=== PATIENT | female | born 1945 | race Caucasian/White ===

== ENCOUNTER 2018-01-05 15:08 | Inpatient (IN) | payer MEDICARE ==
[~2018-01-05 15:08] MED LIST: ISOVUE-370 76%-LOCM 1 ML ONE
[2018-01-05 15:31] LABS: #Basophils 0.1 thou/uL (0.0-0.2); #Eosinphils 0.1 thou/uL (0.0-0.7); #Lymphocytes 1.2 thou/uL (1.20-3.40); #Monocytes 0.5 thou/uL (0.11-0.59); #Neutrophils 8.2 thou/uL (1.40-6.50); %Basophils 1.2 % (0.0-1.0); %Eosinophils 0.7 % (0.0-10.0); %Lymphocytes 12.1 % (21.0-51.0); %Monocytes 4.6 % (0.0-10.0); %Neutrophils 81.3 % (42.0-75.0); Hemoglobin 13.8 g/dL (12.0-16.0); Mean Corpuscular HGB CONC 34.9 g/dL (32.0-36.0); Mean Corpuscular Hemoglobin 32.3 pg (27.0-31.0); Mean Corpuscular Volume 92.7 fL (78.0-98.0); Mean Platelet Volume 8.4 fL (7.4-10.4); Platelet Count 247 thou/uL (130-400); RBC Distribution Width 12.7 % (11.5-14.5); Red Blood Cell (RBC) Count 4.28 mill/uL (4.20-5.40)
--- NOTE | 2018-01-05 15:34 | CT ---
CT BRAIN WITHOUT CONTRAST 01/05/18 HISTORY: Altered mental status and right sided weakness. FINDINGS: No evidence of acute infarct, hemorrhage, midline shift, or abnormal extra-axial fluid collections se en. there are changes of chronic small vessel ischemic disease in the periventricular white matter. The ventricular size is appropriate and the basilar cisterns patent. The bony calvarium is intact. Th e visualized paranasal sinuses and mastoid air cells are well aerated. IMPRESSION: No CT evidence of acute intracranial process. Discussed over the telephone with ER physician, Dr. Mendosa at 3:30 p.m. POS: [facility]
[2018-01-05 15:44] LABS: ALT (SGPT) 18 U/L (8-55); AST (SGOT) 19 U/L (5-34); Albumin 4.3 g/dL (3.4-4.8); Alkaline Phosphatase 75 U/L (40-150); Anion Gap 18 mmol/L (10-20); BUN (Urea Nitrogen) 20 mg/dL (9.8-20.1); Bilirubin, Total 0.7 mg/dL (0.2-1.2); Calc. Creatinine Clearance 0 mL/min (70-130); Calcium 9.3 mg/dL (7.8-10.44); Carbon Dioxide 18 mmol/L (23-31); Chloride 101 mmol/L (98-107); Estimated GFR-MDRD 72; Globulin 2.4 g/dL (2.4-3.5); Glucose 178 mg/dL (83-110); PTT 23.4 SEC (22.9-36.1); Potassium 3.4 mmol/L (3.5-5.1); Protein, Total 6.7 g/dL (6.0-8.3); Sodium 134 mmol/L (136-145)
[2018-01-05 15:48] LABS: CKMB 6.4 ng/mL (0-6.6); Troponin I 0.016 ng/mL (< 0.028)
[2018-01-05 16:00] LABS: Bilirubin Negative (Negative); Blood, Urine Negative (Negative); Clarity CLEAR (Clear); Glucose, Urine (Dipstick) Negative (Negative); Leukocyte Negative (Negative); Nitrite Negative (Negative); Protein, Urine (Dipstick) Negative (Neg-Trace); Specific Gravity, Urine 1.018 (1.002-1.036); Urobilinogen 0.2 mg/dL (0.2-1.0); pH, Urine 5.5 (5.0-9.0)
--- NOTE | 2018-01-05 16:05 | CT ---
CTA BRAIN WITH IV CONTRAST AND 3D POSTPROCESSING CTA NECK WITH IV CONTRAST AND 3D POSTPROCESSING 01/05/18 HISTORY: Altered mental status and right sided weakness. FINDINGS: There is good flow in the extra and intracranial carotid and vertebrobasilar systems without major br anch occlusion, significant stenosis or aneurysm formation. Atherosclerotic calcifications are presen t. Upper chest tomograms demonstrate changes of old granulomatous disease. There are degenerative venus nges in the cervical spine. IMPRESSION: No significant vascular abnormality seen. Discussed over the telephone with Dr. Mendosa at 3:46 p.m. POS: [facility]
[2018-01-05] MEDS ORDERED: Ondansetron ODT 4 MG TAB SL PRN (18:24)
[2018-01-05] MEDS ORDERED: Ondansetron HCl/PF 4 MG/2 ML Vial IVP PRN (18:24)
[2018-01-05] MEDS ORDERED: Acetaminophen 325 MG TAB PO PRN (18:24)
[2018-01-05 19:50] VITALS: BMI 22.2
[2018-01-05] MEDS ORDERED: Bisacodyl 5 MG TAB PO PRN (20:05)
[2018-01-05] MEDS ORDERED: Bisacodyl 10 MG SUPP PR PRN (20:05)
[2018-01-05] MEDS ORDERED: Senokot 8.6 MG TAB PO PRN (20:05)
[2018-01-05] MEDS ORDERED: Atorvastatin Calcium 20 MG TAB PO SCH (21:00)
[2018-01-06 05:18] LABS: #Eosinphils 0.1 thou/uL (0.0-0.7); #Lymphocytes 1.6 thou/uL (1.20-3.40); #Monocytes 0.6 thou/uL (0.11-0.59); #Neutrophils 6.2 thou/uL (1.40-6.50); %Basophils 0.3 % (0.0-1.0); %Lymphocytes 18.7 % (21.0-51.0); %Monocytes 7.4 % (0.0-10.0); %Neutrophils 72.6 % (42.0-75.0); Hemoglobin 13.4 g/dL (12.0-16.0); Mean Corpuscular HGB CONC 33.2 g/dL (32.0-36.0); Mean Corpuscular Hemoglobin 30.6 pg (27.0-31.0); Mean Corpuscular Volume 91.9 fL (78.0-98.0); Mean Platelet Volume 8.8 fL (7.4-10.4); Platelet Count 249 thou/uL (130-400); RBC Distribution Width 12.8 % (11.5-14.5); Red Blood Cell (RBC) Count 4.38 mill/uL (4.20-5.40); White Blood Cell (WBC) Count 8.6 thou/uL (4.8-10.8)
[2018-01-06 05:39] LABS: Anion Gap 11 mmol/L (10-20); BUN (Urea Nitrogen) 13 mg/dL (9.8-20.1); Calc. Creatinine Clearance 54 mL/min (70-130); Calcium 9.3 mg/dL (7.8-10.44); Carbon Dioxide 25 mmol/L (23-31); Cardiac Risk 3.8 (Less than 4.5); Chloride 103 mmol/L (98-107); Cholesterol 162 mg/dl (< 200 Desired); Estimated GFR-MDRD 79; Glucose 96 mg/dL (83-110); HDL Cholesterol 43 mg/dL (>60 Neg Risk); LDL Cholesterol, Calculated 101 mg/dL; Potassium 3.4 mmol/L (3.5-5.1); Sodium 136 mmol/L (136-145); Triglycerides 89 mg/dL (Less than 150)
[2018-01-06] MEDS ORDERED: Levothyroxine Sodium 100 MCG TAB PO SCH (06:00)
[2018-01-06 07:35] VITALS: TEMP 98.2
[2018-01-06] MEDS ORDERED: Aspirin 325 mg Enteric Coated Tablet PO SCH (09:00)
[2018-01-06] MEDS ORDERED: Ezetimibe 10 MG TAB PO SCH (09:00)
[2018-01-06] MEDS ORDERED: Enoxaparin Sodium 30 MG/0.3 ML SYRINGE SC SCH (09:00)
--- NOTE | 2018-01-06 11:46 | MRI ---
MRI BRAIN WITHOUT CONTRAST: HISTORY: Stroke. The patient has been under a lot of stress recently and lost her mind for a while. Guerra dden onset of forgetfulness. COMPARISON: None. TECHNIQUE: Multiplanar, multisequence MR images were obtained of the brain without contrast. FINDINGS: There are scattered foci of high FLAIR signal in the subcortical and periventricular white matter, li elsa secondary to small vessel ischemic disease. No restricted diffusion is seen to suggest an acute infarction. There is no evidence of hydrocephalus, intracranial hemorrhage, or extraaxial fluid collection. The expected flow voids are seen. The corpus callosum, pituitary, and craniocervical junction are unrema rkable. The calvarium and overlying soft tissues are unremarkable. The visualized paranasal sinuses and mast oid air cells are well aerated. IMPRESSION: 1. No evidence of acute intracranial abnormality. 2. Small vessel ischemic disease. POS: [facility]
[2018-01-06 14:25] VITALS: BP 150/94
--- NOTE | 2018-01-07 00:17 | CON ---
DATE OF CONSULTATION: 01/06/2018 REFERRING PHYSICIAN: Josie Jeffrey MD REASON FOR CONSULTATION: Altered mental status. HISTORY OF PRESENT ILLNESS: Ms. Jackson is a pleasant 72-year-old female who has been cons ulted for evaluation of altered mental status. The patient reports that yesterday morning she had a sudden onset of confusion. She also had right-sided weakness. Her family called EMS. On EMS arriva l, her blood pressure was noted to be 182/119, tachycardic and blood sugar of 119. She was brought t o the [facility] and after arrival here, her symptoms started improving. She reports that s he is back to her baseline. She states that she has been under a lot of stress as her sister and bro ther-in-law in less than 1 month, which had concerned her and make her more stressed out. She c urrently denies any headache, vision changes, chest pain, palpitation, numbness, tingling, weakness, changes in speech, change in swallowing or difficulty with balance. PAST MEDICAL HISTORY: Significant for hypertension, hyperlipidemia, and hypothyroidism. PAST SURGICAL HISTORY: Significant for thyroidectomy, hysterectomy. SOCIAL HISTORY: She denies smoking, alcohol use, or illicit drug use. CURRENT MEDICATIONS: Please review MAR. ALLERGIES: No known drug allergies. FAMILY HISTORY: Noncontributory. REVIEW OF SYSTEMS: As mentioned, which was negative. PHYSICAL EXAMINATION: VITAL SIGNS: Blood pressure of 150/94, pulse of 83, temperature 98.2, respirations of 16, O2 sats of 94% on room air. GENERAL: Well-developed, well-nourished female in no apparent distress. RESPIRATORY: Clear to auscultation bilaterally. CARDIOVASCULAR: Regular rate and rhythm. NEUROLOGIC: Mental status: The patient is awake, alert, oriented x3. Speech and language: Fluent speech. Cranial nerves: Pupils are 3 mm and reactive. Visual crockett are intact. Extraocular muscl es are intact. No nystagmus. Face symmetric. Tongue and uvula midline. Motor exam showed normal t one and bulk with 5/5 strength in both upper and lower extremities. Babinski: Plantar responses fle xion bilaterally. Coordination intact to [id number] and finger tapping bilaterally. Gait an d Romberg are normal. LABORATORY DATA: Reviewed, which included CBC, coag panel, CMP, lipid profile, TSH, urinalysis which is significant for potassium of 3.4, otherwise unremarkable. IMAGING STUDIES: MRI brain without contrast was reviewed, which showed no acute intracranial abnorma lity. IMPRESSION: 1. Hypertensive urgency. 2. Altered mental status, likely due to hypertensive urgency. 3. Malignant hypertension. Ms. Jackson is a pleasant 72-year-old female who presented with an acute onset of confusion and right-sided weakness. Her blood pressure was noted to be significantly elevated, which may have been the culprit for her symptoms. I have advised her to control her blood pressure, cholesterol, d iet and exercise. I have advised her to continue taking aspirin 81 mg daily for secondary stroke pre vention. She is okay to be discharged to home with outpatient appointment to her primary care physic michael in less than 1 week. There is no further neurological workup needed from my standpoint.
== END 2018-01-06 14:56 | disposition home or self-care (01) | DRG 305 ==
LOC: ERS 15:08 → 2SE 17:45
PROVIDERS: ADMIT Internal Medicine; ATTEND Internal Medicine
DX: I16.0 Hypertensive urgency (principal); I10 Essential (primary) hypertension
CPT/HCPCS: 36415; 36416; 51701; 70450; 70496; 70498; 70551; 80048; 80053; 80061; 81003; 82553; 84443; 84484; 85025; 85610; 85730; 93005; A4353; G8978-GP-CJ; G8979-GP-CJ; G8980-GP-CJ; G8987-GO-CI; G8988-GO-CI; G8989-GO-CI; G8996-GN-CH; G8997-GN-CH; J1650

== ENCOUNTER 2018-01-17 12:20 | Outpatient (CLI) | payer MEDICARE | END 2018-01-17 12:21 | disposition home or self-care (01) | LOC: EEG 12:20 | PROVIDERS: ATTEND Internal Medicine | DX: R56.9 Unspecified convulsions (principal) | CPT/HCPCS: 95816 ==

== ENCOUNTER 2018-05-04 17:23 | Emergency (ER) | payer MEDICARE ==
[2018-05-04] MEDS ORDERED: levETIRAcetam In NaCl (Iso-Os) 1,000 MG in Premix Bag 1 BAG IVPB SCH (18:00)
[2018-05-04 18:12] LABS: #Lymphocytes 0.6 thou/uL (1.20-3.40); #Monocytes 0.4 thou/uL (0.11-0.59); #Neutrophils 9.4 thou/uL (1.40-6.50); %Eosinophils 0.4 % (0.0-10.0); %Lymphocytes 5.7 % (21.0-51.0); %Monocytes 3.8 % (0.0-10.0); %Neutrophils 90.1 % (42.0-75.0); Hemoglobin 14.5 g/dL (12.0-16.0); Mean Corpuscular HGB CONC 32.8 g/dL (32.0-36.0); Mean Corpuscular Hemoglobin 30.8 pg (27.0-31.0); Mean Corpuscular Volume 94.1 fL (78.0-98.0); Mean Platelet Volume 8.7 fL (7.4-10.4); Platelet Count 273 thou/uL (130-400); RBC Distribution Width 12.5 % (11.5-14.5); Red Blood Cell (RBC) Count 4.69 mill/uL (4.20-5.40); White Blood Cell (WBC) Count 10.4 thou/uL (4.8-10.8)
[2018-05-04 18:37] LABS: ALT (SGPT) 18 U/L (8-55); AST (SGOT) 25 U/L (5-34); Albumin 4.4 g/dL (3.4-4.8); Alkaline Phosphatase 97 U/L (40-150); Anion Gap 12 mmol/L (10-20); BUN (Urea Nitrogen) 23 mg/dL (9.8-20.1); Bilirubin, Total 0.4 mg/dL (0.2-1.2); Calc. Creatinine Clearance 0 mL/min (70-130); Calcium 9.5 mg/dL (7.8-10.44); Carbon Dioxide 27 mmol/L (23-31); Chloride 99 mmol/L (98-107); Estimated GFR-MDRD 56; Globulin 2.9 g/dL (2.4-3.5); Glucose 135 mg/dL (83-110); Protein, Total 7.3 g/dL (6.0-8.3); Sodium 134 mmol/L (136-145)
--- NOTE | 2018-05-04 20:05 | CT ---
NONCONTRAST HEAD CT: 05/04/18 HISTORY: Altered mental status. COMPARISON: 01/05/18. FINDINGS: No parenchymal hemorrhage. No extra-axial hematoma. No midline shift. Basilar cisterns are patent. St able atrophy. Stable hypo densities due to chronic small vessel ischemic changes of the white matter. Stable hypodensities in the mid brain and lucy. Stable calcifications involving the left cerebrum. No evidence of hydrocephalus. Cortical fernando-white matter differentiation is preserved. Adequate aeration of the sinuses and mastoid air cells. There is cavernous carotid atherosclerosis. C alvarium is intact. IMPRESSION: No acute intracranial process. POS: [facility]
== END 2018-05-04 20:11 | disposition home or self-care (01) ==
LOC: ERS 17:23
DX: G40.909 Epilepsy, unspecified, not intractable, without status epilepticus (principal); E03.9 Hypothyroidism, unspecified; E78.00 Pure hypercholesterolemia, unspecified; Z79.899 Other long term (current) drug therapy
CPT/HCPCS: 36415; 70450; 80053; 83605; 84146; 85025; 93005; 96361; 96365; J1953

== ENCOUNTER 2020-05-31 13:31 | Outpatient (CLI) | payer MEDICARE ==
[2020-05-31 14:19] LABS: #Monocytes 0.7 10x3/uL (0.0-1.1); #Neutrophils 10.8 10x3/uL (1.5-8.4); %Basophils 0.2 % (0.0-2.0); %Eosinophils 0.3 % (0.0-6.0); %Lymphocytes 8.8 % (18.0-47.0); %Monocytes 5.1 % (0.0-10.0); %Neutrophils 85.3 % (40.0-75.0); Hemoglobin 15.8 g/dL (12.0-16.0); Mean Corpuscular HGB CONC 33.6 G/DL (32.0-36.0); Mean Corpuscular Hemoglobin 31.4 PG (27.0-33.0); Mean Corpuscular Volume 93.4 fl (80.0-100.0); Platelet Count 355 10x3/uL (130-400); RBC Distribution Width 13.6 % (11.5-14.5); Red Blood Cell (RBC) Count 5.03 10x6/uL (3.90-5.20); White Blood Cell (WBC) Count 12.7 10x3/uL (4.5-11.0)
[2020-05-31 14:20] LABS: Bilirubin Neg (Negative); Blood, Urine Negative (Negative); Clarity Clear (Clear); Glucose, Urine (Dipstick) Normal (Negative); Ketone, Urine Negative (Negative); Leukocyte 100 (Negative); Nitrite Negative (Negative); Protein, Urine (Dipstick) Negative (Neg-Trace); Specific Gravity, Urine 1.015 (1.002-1.036); Urobilinogen Normal mg/dL (Less than 2)
[2020-05-31 14:40] LABS: INR-International Normal Ratio 0.9
[2020-05-31 15:13] LABS: Anion Gap 18 mmol/L (10-20); BUN (Urea Nitrogen) 20 mg/dL (9.8-20.1); Calc. Creatinine Clearance 0 mL/min (70-130); Calcium 9.9 mg/dL (7.8-10.44); Carbon Dioxide 23 mmol/L (23-31); Chloride 103 mmol/L (98-107); Estimated GFR-MDRD 65; Glucose 132 mg/dL (83-110); Potassium 4.4 mmol/L (3.5-5.1); Sodium 140 mmol/L (136-145)
[2020-05-31 15:41] LABS: RBC/HPF 0-3 HPF (0-3)
[2020-05-31 15:45] LABS: Bacteria/HPF 3+ HPF (None Seen)
[2020-05-31 15:47] LABS: Mucous/LPF Rare LPF (<2+)
[2020-06-01 03:08] LABS: SARS-CoV-2 MS2 Positive; SARS-CoV-2 N Gene Negative; SARS-CoV-2 S Gene Negative; SARS-CoV-2 by NAA Not Detected (NotDetected); SARS-CoV-2 orf1ab Negative
== END 2020-05-31 13:32 | disposition home or self-care (01) ==
LOC: LABBT 13:31
PROVIDERS: ATTEND Orthopaedic Surgery
DX: Z01.812 Encounter for preprocedural laboratory examination (principal); M16.11 Unilateral primary osteoarthritis, right hip; Z20.828 Contact with and (suspected) exposure to other viral communicable diseases
CPT/HCPCS: 80048; 81001; 85025; 85610; 87081; U0003; 87635

== ENCOUNTER 2020-06-04 06:15 | Inpatient (IN) | payer MEDICARE ==
[2020-06-03 10:32] VITALS: BMI 24.2
[2020-06-04] MEDS ORDERED: Midazolam HCl 2 mg/2 ml Vial ONE (07:55)
[2020-06-04] MEDS ORDERED: Fentanyl 100 MCG/2 ML VIAL ONE ×3 (07:56→13:36)
[2020-06-04] MEDS ORDERED: Vancomycin 1 GM/200 ML BAG ONE (08:00)
[2020-06-04] MEDS ORDERED: Sodium Chloride 0.9% 100 ML ONE (08:00)
[2020-06-04] MEDS ORDERED: Tranexamic Acid 1,000 MG/10 ML VIAL ONE (08:00)
[2020-06-04] MEDS ORDERED: traMADol HCl 50 MG TAB PO PRN ×3 (08:39→09:00)
[2020-06-04] MEDS ORDERED: Acetaminophen 325 MG TAB PO PRN (08:39)
[2020-06-04] MEDS ORDERED: HYDROcodone/Acetaminophen 10/325 mg Tablet PO PRN (08:39)
[2020-06-04] MEDS ORDERED: Zolpidem Tartrate 5 MG TAB PO PRN ×2 (08:39→09:00)
[2020-06-04] MEDS ORDERED: Fentanyl 100 MCG/2 ML VIAL SLOW IVP PRN (08:39)
[2020-06-04] MEDS ORDERED: Promethazine HCl 25 MG/ML VIAL IM PRN ×3 (08:39→11:08)
[2020-06-04] MEDS ORDERED: Ondansetron PF 4 MG/2 ML Vial IVP PRN (08:39)
[2020-06-04] MEDS ORDERED: diphenhydrAMINE 25 MG CAP PO PRN ×2 (08:39→09:00)
[2020-06-04] MEDS ORDERED: Acetaminophen 500 MG TAB PO PRN (08:55)
[2020-06-04] MEDS ORDERED: Naloxone HCl 0.4 mg/ml Vial IV PRN (09:00)
[2020-06-04] MEDS ORDERED: diphenhydrAMINE 50 MG/ML VIAL IVP PRN (09:00)
[2020-06-04] MEDS ORDERED: diphenhydrAMINE 50 MG/ML VIAL IM PRN (09:00)
[2020-06-04] MEDS ORDERED: Hydrocerin (Eucerin) Cream 120 gm Jar TOP PRN (09:00)
[2020-06-04] MEDS ORDERED: Naloxone HCl 0.4 mg/ml Vial IVP PRN (09:00)
[2020-06-04] MEDS ORDERED: Promethazine HCl 25 MG SUPP PR PRN (09:00)
[2020-06-04] MEDS ORDERED: Non-Formulary Item 1 EACH (Multivitamin [Multi-Vitamin Daily] 1 TABLET Tablet) PO SCH (09:00)
[2020-06-04] MEDS ORDERED: HYDROcodone/Acetaminophen 5/325 mg Tablet PO PRN ×2 (09:00)
[2020-06-04] MEDS ORDERED: Bupivacaine 0.25% 10 ML VIAL EPIDURAL PRN (09:00)
[2020-06-04] MEDS ORDERED: Bupivacaine 0.25% HCL 30 ML VIAL ONE (10:45)
[2020-06-04] MEDS ORDERED: Promethazine HCl 25 MG/ML VIAL SLOW IVP PRN (11:08)
[2020-06-04] MEDS ORDERED: Ondansetron HCl/PF 4 MG/2 ML Vial IVP PRN (11:08)
[2020-06-04] MEDS ORDERED: Rocuronium Bromide 10 MG/ML (10ML VIAL) ONE (11:45)
[2020-06-04] MEDS ORDERED: PHENYLEPHRINE-NS 100 MCG/ML 10 ML SYRINGE ONE (11:45)
[2020-06-04] MEDS ORDERED: Glycopyrrolate 0.2 MG/ML 5 ML SYRINGE ONE (11:45)
[2020-06-04] MEDS ORDERED: Ketorolac Tromethamine 30 MG/ML VIAL ONE (11:45)
[2020-06-04] MEDS ORDERED: Ondansetron PF 4 MG/2 ML Vial ONE (11:45)
[2020-06-04] MEDS ORDERED: PROPOFOL 200 MG/20 ML VIAL ONE (11:45)
[2020-06-04] MEDS ORDERED: Lidocaine 1.5% w/Epi 1:200K 30 ML VIAL (Epid Use) ONE (11:46)
--- NOTE | 2020-06-04 11:50 | RAD ---
RIGHT HIP 2 VIEWS: HISTORY: Postop total hip arthroplasty FINDINGS: There are recent postoperative changes of total hip arthroplasty in good position and alignment. Soft tissue air is present.
[2020-06-04] MEDS ORDERED: CEFAZOLIN 2 GM in Premix Bag 1 BAG IVPB SCH (16:00)
--- NOTE | 2020-06-04 17:12 | OP ---
DATE OF PROCEDURE: 06/04/2020 TITLE OF PROCEDURE: Right total hip arthroplasty using a cemented Accolade stem size 2 with a standard 36-mm head, trident II cup size 48 with a 36 mm liner. I did use a ceramic head. FRINGE MAKER: Brian Ross PA-C BLOOD LOSS: 200. SPECIMEN: None. DRAINS: None. COMPLICATIONS: None. The client account assistant/co-surgeon was present through the entire procedure and was responsible for providing exposure, tissue retraction and any necessary limb or tissue manipulation required to obtain necessary reduction or hardware placement. The client account assistant/co-surgeon also provided bleeding control, tissue closure, and suturing in conjunction with the primary surgeon. PROCEDURE IN DETAIL: The patient was taken to the operating room, where anesthesia was induced. The patient was positioned on the hip holding device on the operating table. The ophthalmology surgical technician was integral in the positioning of the patient and padding of the patient, protecting the bony prominences and nerves. The hip was then prepped and draped in the usual sterile fashion. A lateral incision was made centered over the greater trochanter. Dissection was carried down to the IT band, which was divided distally, extended proximally. Self-retraining retractors were placed in the wound. A small portion of the abductor was taken down, about one-third or less. Hip capsule tissue was excised and hip was dislocated. Femoral neck was cut with an oscillating saw. The acetabulum was circumferentially exposed. During this portion of the procedure, surgeon removed the labral tissue. The client account assistant reamed from their side of the table. Reaming was carried down to the bottom of the fovea and expanded to get a good press-fit. Appropriate cup was impacted into place and a good press-fit checked. Polyethylene liner was deployed. Attention was turned back to the femur. The client account assistant dislocated the femur again and delivered the proximal femur up into the wound while the surgeon opened the femur with a [employer] cutter and T-handle and broached up to the appropriate size stem. In this case, this was a cemented Accolade stem. A trial reduction was performed. Once appropriate head length was determined, trials were removed and irrigation performed. The canal was plugged with a Vaiden plug. Cement was then pressurized and appropriate stem was centered into place. Trials were performed again and the appropriate head was placed along with a carefully dried trunnion. Hip was reduced. Abductor was repaired with #5 Ethibond and #2 Vicryl. The IT band was repaired with #2 Vicryl, #2 Quill, subcutaneous tissue closed with 0 Quill, skin was closed with 2-0 Monoderm and skin glue was applied. There were no complications. The stem was cemented into place due to poor bone quality. Job ID: [id number]
[2020-06-04] MEDS: Sodium Chloride 0.9% 1,000 ML IV SCH ×2 (18:17→18:46)
[2020-06-04] MEDS: Ketorolac Tromethamine 30 MG/ML VIAL IVP SCH ×2 (18:18→18:46)
[2020-06-04] MEDS: Amlodipine 10 MG TAB PO SCH (18:45)
[2020-06-04] MEDS: Aspirin 81 mg Enteric Coated Tablet PO SCH ×2 (18:45→20:24)
[2020-06-04] MEDS: Ubidecarenone 50 MG CAP PO SCH (18:46)
[2020-06-04] MEDS: levETIRAcetam 500 MG TAB PO SCH ×2 (18:46→20:23)
[2020-06-04] MEDS: Ezetimibe 10 MG TAB PO SCH (20:22)
[2020-06-04] MEDS: Atorvastatin Calcium 20 MG TAB PO SCH (20:24)
[2020-06-05] MEDS: Ketorolac Tromethamine 30 MG/ML VIAL IVP SCH ×5 (00:57→23:18)
[2020-06-05] MEDS ORDERED: CEFAZOLIN 2 GM in Premix Bag 1 BAG IVPB SCH (02:00)
[2020-06-05] MEDS: fentaNYL Citrate/PF 500 MCG, Bupivacaine 10 ML in Sodium Chloride 0.9% 80 ML EPIDURAL SCH ×2 (05:06→21:19)
[2020-06-05] MEDS: Levothyroxine Sodium 100 MCG TAB PO SCH (05:07)
[2020-06-05] MEDS: Sodium Chloride 0.9% 1,000 ML IV SCH ×2 (06:21→17:26)
[2020-06-05 06:34] LABS: Hemoglobin 11.3 g/dL (12.0-16.0); Mean Corpuscular HGB CONC 34.2 g/dL (32.0-36.0); Mean Corpuscular Hemoglobin 32.4 pg (27.0-31.0); Mean Corpuscular Volume 94.9 fL (78.0-98.0); Mean Platelet Volume 9.4 fL (7.4-10.4); Platelet Count 209 thou/uL (130-400); RBC Distribution Width 12.5 % (11.5-14.5); Red Blood Cell (RBC) Count 3.48 mill/uL (4.20-5.40)
[2020-06-05] MEDS ORDERED: FLU VACC QS2020-21(65YR UP)/PF 240 MCG/0.7 ML SYRINGE IM ONE (09:00)
[2020-06-05] MEDS: Senokot S 8.6-50 MG TAB PO SCH ×2 (09:02→20:22)
[2020-06-05] MEDS: Potassium Chloride 10 MEQ TAB PO SCH (09:03)
[2020-06-05] MEDS: Aspirin 81 mg Enteric Coated Tablet PO SCH ×2 (09:03→20:22)
[2020-06-05] MEDS: Multivitamin W/ Minerals 1 TAB PO SCH (09:03)
[2020-06-05] MEDS: Ubidecarenone 50 MG CAP PO SCH (09:03)
[2020-06-05] MEDS: levETIRAcetam 500 MG TAB PO SCH ×2 (09:04→20:22)
[2020-06-05] MEDS: Amlodipine 10 MG TAB PO SCH (09:05)
[2020-06-05] MEDS: Ferrous Gluconate 324 MG TAB PO SCH ×2 (09:06→17:41)
[2020-06-05] MEDS: Ondansetron PF 4 MG/2 ML Vial IVP PRN (10:42)
[2020-06-05] MEDS: Ezetimibe 10 MG TAB PO SCH (20:22)
[2020-06-05] MEDS: Atorvastatin Calcium 20 MG TAB PO SCH (20:22)
[2020-06-06] MEDS: Sodium Chloride 0.9% 1,000 ML IV SCH ×2 (04:20→12:52)
[2020-06-06] MEDS: Ketorolac Tromethamine 30 MG/ML VIAL IVP SCH (05:08)
[2020-06-06] MEDS: Levothyroxine Sodium 100 MCG TAB PO SCH (05:08)
[2020-06-06 05:33] LABS: Hemoglobin 11.2 g/dL (12.0-16.0); Mean Corpuscular HGB CONC 34.6 g/dL (32.0-36.0); Mean Corpuscular Hemoglobin 32.7 pg (27.0-31.0); Mean Corpuscular Volume 94.5 fL (78.0-98.0); Mean Platelet Volume 9.6 fL (7.4-10.4); Platelet Count 199 thou/uL (130-400); RBC Distribution Width 12.4 % (11.5-14.5); Red Blood Cell (RBC) Count 3.43 mill/uL (4.20-5.40); White Blood Cell (WBC) Count 6.5 thou/uL (4.8-10.8)
[2020-06-06] MEDS: Potassium Chloride 10 MEQ TAB PO SCH (09:54)
[2020-06-06] MEDS: Aspirin 81 mg Enteric Coated Tablet PO SCH ×2 (09:55→19:47)
[2020-06-06] MEDS: Ferrous Gluconate 324 MG TAB PO SCH ×2 (09:55→17:11)
[2020-06-06] MEDS: Senokot S 8.6-50 MG TAB PO SCH ×2 (09:56→19:47)
[2020-06-06] MEDS: levETIRAcetam 500 MG TAB PO SCH ×2 (09:56→19:47)
[2020-06-06] MEDS: Multivitamin W/ Minerals 1 TAB PO SCH (09:56)
[2020-06-06] MEDS: Ubidecarenone 50 MG CAP PO SCH (09:57)
[2020-06-06] MEDS: Amlodipine 10 MG TAB PO SCH (09:58)
[2020-06-06] MEDS ORDERED: HYDROcodone/Acetaminophen 7.5/325 mg Tablet PO PRN (10:14)
--- NOTE | 2020-06-06 12:08 | PRG ---
DATE OF SERVICE: 06/06/2020 SUBJECTIVE: Ninoska is a 75-year-old female who is postop day #2 from a right total hip arthroplasty utilizing a cemented Accolade stem. She is doing relatively well. She is ambulating approximately 200 feet. She still has some pain issues and I believe her epidural still present. OBJECTIVE: VITAL SIGNS: Temperature 98.2, pulse 85, respiratory rate is 16, nonlabored, O2 saturation is 94% on room air, and blood pressure 97/62. GENERAL: She is alert and oriented to person, place, time, situation, responsive, appropriate examiner and conversive. MUSCULOSKELETAL: Her incision is clean. There is no malrotation or shortening. Leg lengths appear normal. There is no strike through erythema. She is neurovascularly intact in left lower extremity. LABORATORY DATA: Hemoglobin and hematocrit 11.2 and 32.4. IMPRESSION: 1. This is a 75-year-old female, postop day #2, left total hip arthroplasty. 2. Still present with discomfort, which inhibits her ability to get around with confidence. PLAN: 1. Continue current care. 2. I will hold discharge until tomorrow. I expect she will be a little more mobile, little more confident, and able to function independently. She will need to at home. We will plan for discharge then. Also, she still needs to have her epidural removed and her Ortiz catheter removed. We will follow up tomorrow. Job ID: [id number]
[2020-06-06] MEDS: Ondansetron PF 4 MG/2 ML Vial IVP PRN (12:55)
[2020-06-06] MEDS: HYDROcodone/Acetaminophen 7.5/325 mg Tablet PO PRN (19:45)
[2020-06-06] MEDS: Atorvastatin Calcium 20 MG TAB PO SCH (19:46)
[2020-06-06] MEDS: Ezetimibe 10 MG TAB PO SCH (19:47)
[2020-06-07] MEDS: Sodium Chloride 0.9% 1,000 ML IV SCH ×2 (00:22→07:26)
[2020-06-07] MEDS: Levothyroxine Sodium 100 MCG TAB PO SCH (04:59)
[2020-06-07 06:03] LABS: Hemoglobin 11.2 g/dL (12.0-16.0); Mean Corpuscular HGB CONC 34.6 g/dL (32.0-36.0); Mean Corpuscular Hemoglobin 32.4 pg (27.0-31.0); Mean Corpuscular Volume 93.8 fL (78.0-98.0); Mean Platelet Volume 9.6 fL (7.4-10.4); Platelet Count 209 thou/uL (130-400); RBC Distribution Width 12.3 % (11.5-14.5); Red Blood Cell (RBC) Count 3.46 mill/uL (4.20-5.40)
[2020-06-07 07:49] VITALS: TEMP 98.1
[2020-06-07] MEDS: Potassium Chloride 10 MEQ TAB PO SCH (08:41)
[2020-06-07] MEDS: Ubidecarenone 50 MG CAP PO SCH (08:41)
[2020-06-07] MEDS: Ferrous Gluconate 324 MG TAB PO SCH (08:42)
[2020-06-07] MEDS: Amlodipine 10 MG TAB PO SCH (08:42)
[2020-06-07] MEDS: levETIRAcetam 500 MG TAB PO SCH (08:42)
[2020-06-07] MEDS: Multivitamin W/ Minerals 1 TAB PO SCH (08:42)
[2020-06-07] MEDS: Aspirin 81 mg Enteric Coated Tablet PO SCH (08:43)
[2020-06-07] MEDS: Senokot S 8.6-50 MG TAB PO SCH (08:43)
[2020-06-07] MEDS: HYDROcodone/Acetaminophen 7.5/325 mg Tablet PO PRN (08:51)
[2020-06-07 11:30] VITALS: BP 130/79
== END 2020-06-07 11:25 | disposition home or self-care (01) | DRG 470 ==
LOC: SDC 06:15 → SURG A 08:39 → EDSTATUS 14:00
PROVIDERS: ADMIT Orthopaedic Surgery; ATTEND Orthopaedic Surgery
PROC: 0SR9039 Replacement of Right Hip Joint with Ceramic Synthetic Substitute, Cemented, Open Approach (ICD-10-PCS; principal; 2020-06-04)
DX: M16.11 Unilateral primary osteoarthritis, right hip (principal); Z20.828 Contact with and (suspected) exposure to other viral communicable diseases; I10 Essential (primary) hypertension; E78.5 Hyperlipidemia, unspecified; G43.909 Migraine, unspecified, not intractable, without status migrainosus; E03.9 Hypothyroidism, unspecified; Z90.49 Acquired absence of other specified parts of digestive tract; Z79.890 Hormone replacement therapy; Z79.899 Other long term (current) drug therapy
CPT/HCPCS: 36415; 85027; 90471; 90662; C1713; C1776; G0008; J0690; J1885; J2001; J2250; J2405; J2704; J3010; J3370; J3490; S0020

== ENCOUNTER 2020-08-12 18:44 | Inpatient (IN) | payer MEDICARE ==
[2020-08-12 19:25] LABS: #Lymphocytes 0.5 thou/uL (1.20-3.40); #Monocytes 0.2 thou/uL (0.11-0.59); #Neutrophils 4.6 thou/uL (1.40-6.50); %Basophils 0.2 % (0.0-1.0); %Eosinophils 0.1 % (0.0-10.0); %Lymphocytes 9.6 % (21.0-51.0); %Monocytes 2.8 % (0.0-10.0); %Neutrophils 87.2 % (42.0-75.0); Hemoglobin 14.5 g/dL (12.0-16.0); Mean Corpuscular HGB CONC 33.8 g/dL (32.0-36.0); Mean Corpuscular Hemoglobin 30.5 pg (27.0-31.0); Mean Corpuscular Volume 90.2 fL (78.0-98.0); Mean Platelet Volume 9.5 fL (7.4-10.4); Platelet Count 327 thou/uL (130-400); Red Blood Cell (RBC) Count 4.75 mill/uL (4.20-5.40); White Blood Cell (WBC) Count 5.3 thou/uL (4.8-10.8)
[2020-08-12 19:25] LABS: Bilirubin Negative (Negative); Blood, Urine Negative (Negative); Clarity Clear (Clear); Glucose, Urine (Dipstick) Normal (Negative); Ketone, Urine 20 mg/dL (Negative); Leukocyte Negative Leu/uL (Negative); Nitrite Negative (Negative); Protein, Urine (Dipstick) 20 mg/dL (Neg-Trace); Specific Gravity, Urine 1.023 (1.002-1.036); Urobilinogen Normal mg/dL (Less than 2); pH, Urine 5.5 (5.0-9.0)
[2020-08-12 19:46] LABS: ALT (SGPT) 31 U/L (8-55); AST (SGOT) 47 U/L (5-34); Albumin 3.2 g/dL (3.4-4.8); Alkaline Phosphatase 132 U/L (40-110); Anion Gap 17 mmol/L (10-20); BUN (Urea Nitrogen) 38 mg/dL (9.8-20.1); Bilirubin, Total 0.6 mg/dL (0.2-1.2); Calc. Creatinine Clearance 0 mL/min (70-130); Calcium 8.4 mg/dL (7.8-10.44); Carbon Dioxide 21 mmol/L (23-31); Chloride 101 mmol/L (98-107); Globulin 3.6 g/dL (2.4-3.5); Glucose 102 mg/dL (83-110); Potassium 3.5 mmol/L (3.5-5.1); Protein, Total 6.8 g/dL (5.8-8.1); Sodium 135 mmol/L (136-145)
[2020-08-12] MEDS ORDERED: Guaifenesin DM 100-10/5 ML UDCUP PO PRN (20:35)
[2020-08-12] MEDS ORDERED: Bisacodyl 5 MG TAB PO PRN (20:35)
[2020-08-12] MEDS ORDERED: HYDROcodone/Acetaminophen 5/325 mg Tablet PO PRN (20:35)
[2020-08-12] MEDS ORDERED: Zolpidem Tartrate 5 MG TAB PO PRN (20:35)
[2020-08-12] MEDS ORDERED: Ondansetron PF 4 MG/2 ML Vial IVP PRN (20:35)
[2020-08-12] MEDS ORDERED: Acetaminophen 325 MG TAB PO PRN (20:35)
[2020-08-12] MEDS ORDERED: hydrALAZINE 20 MG/ML VIAL SLOW IVP PRN (20:46)
[2020-08-12] MEDS ORDERED: Fentanyl 100 MCG/2 ML VIAL ONE (21:34)
[2020-08-12 21:46] LABS: Ferritin 584.41 ng/mL (10-291); Thyroid Stimulating Hormone 0.3212 uIU/mL (0.35-4.94)
[2020-08-12] MEDS ORDERED: Ivermectin 3 MG TAB PO SCH (22:00)
[2020-08-12] MEDS ORDERED: Potassium Chloride 10 MEQ TAB PO SCH (22:00)
[2020-08-12] MEDS ORDERED: cefTRIAXone\\ROCEPHIN 1 GM in Sodium Chloride 0.9% 100 ML IVPB SCH (22:00)
[2020-08-12] MEDS ORDERED: Dexamethasone 4 MG TAB PO SCH (22:00)
[2020-08-12 22:17] LABS: SARS-CoV-2 NAA Rapid Test DETECTED (NotDetected)
[2020-08-13] MEDS: guaiFENesin ER 600 MG TAB PO SCH ×3 (00:01→20:04)
[2020-08-13] MEDS: Enoxaparin Sodium 40 MG/0.4 ML SYRINGE SC SCH ×3 (00:02→20:02)
[2020-08-13] MEDS: Atorvastatin Calcium 20 MG TAB PO SCH ×2 (00:02→20:01)
[2020-08-13] MEDS: Aspirin 81 mg Enteric Coated Tablet PO SCH ×3 (00:02→20:01)
[2020-08-13] MEDS: Famotidine 20 MG TAB PO SCH ×3 (00:02→20:03)
[2020-08-13] MEDS: levETIRAcetam 500 mg/5 ml Oral Solution PO SCH ×3 (00:07→20:01)
[2020-08-13 02:58] VITALS: BMI 23.3
[2020-08-13] MEDS: Levothyroxine Sodium 100 MCG TAB PO SCH (05:19)
[2020-08-13 06:07] LABS: #Lymphocytes 0.4 thou/uL (1.20-3.40); #Monocytes 0.1 thou/uL (0.11-0.59); #Neutrophils 3.3 thou/uL (1.40-6.50); %Basophils 0.2 % (0.0-1.0); %Lymphocytes 10.5 % (21.0-51.0); %Neutrophils 87.3 % (42.0-75.0); Hemoglobin 11.9 g/dL (12.0-16.0); Mean Corpuscular HGB CONC 32.6 g/dL (32.0-36.0); Mean Corpuscular Hemoglobin 29.5 pg (27.0-31.0); Mean Corpuscular Volume 90.5 fL (78.0-98.0); Mean Platelet Volume 9.4 fL (7.4-10.4); Platelet Count 271 thou/uL (130-400); RBC Distribution Width 11.9 % (11.5-14.5); Red Blood Cell (RBC) Count 4.04 mill/uL (4.20-5.40); White Blood Cell (WBC) Count 3.8 thou/uL (4.8-10.8)
[2020-08-13 06:24] LABS: Anion Gap 16 mmol/L (10-20); BUN (Urea Nitrogen) 31 mg/dL (9.8-20.1); Calc. Creatinine Clearance 68 mL/min (70-130); Calcium 7.6 mg/dL (7.8-10.44); Carbon Dioxide 18 mmol/L (23-31); Chloride 106 mmol/L (98-107); Glucose 148 mg/dL (83-110); Potassium 3.7 mmol/L (3.5-5.1); Sodium 136 mmol/L (136-145)
[2020-08-13] MEDS ORDERED: Dexamethasone 4 MG TAB PO SCH (08:00)
[2020-08-13] MEDS: Zinc Sulfate 220 MG CAP PO SCH (08:14)
[2020-08-13] MEDS: Potassium Chloride 10 MEQ TAB PO SCH ×2 (08:14→16:35)
[2020-08-13] MEDS: Amlodipine 10 MG TAB PO SCH (08:15)
[2020-08-13] MEDS: cefTRIAXone\\ROCEPHIN 1 GM in Sodium Chloride 0.9% 100 ML IVPB SCH (20:00)
[2020-08-13] MEDS: Ezetimibe 10 MG TAB PO SCH (20:03)
[2020-08-14] MEDS: Levothyroxine Sodium 100 MCG TAB PO SCH (06:27)
[2020-08-14] MEDS: Potassium Chloride 10 MEQ TAB PO SCH ×2 (08:09→16:42)
[2020-08-14] MEDS: Aspirin 81 mg Enteric Coated Tablet PO SCH ×2 (08:09→19:40)
[2020-08-14] MEDS: Amlodipine 10 MG TAB PO SCH (08:09)
[2020-08-14] MEDS: Dexamethasone 4 mg/ml Vial SLOW IVP SCH (08:09)
[2020-08-14] MEDS: Famotidine 20 MG TAB PO SCH ×2 (08:09→19:41)
[2020-08-14] MEDS: guaiFENesin ER 600 MG TAB PO SCH ×2 (08:09→19:42)
[2020-08-14] MEDS: Enoxaparin Sodium 40 MG/0.4 ML SYRINGE SC SCH ×2 (08:09→19:40)
[2020-08-14] MEDS: Zinc Sulfate 220 MG CAP PO SCH (08:09)
[2020-08-14] MEDS: levETIRAcetam 500 mg/5 ml Oral Solution PO SCH ×2 (09:04→19:42)
[2020-08-14] MEDS: cefTRIAXone\\ROCEPHIN 1 GM in Sodium Chloride 0.9% 100 ML IVPB SCH (19:39)
[2020-08-14] MEDS: Atorvastatin Calcium 20 MG TAB PO SCH (19:40)
[2020-08-14] MEDS: Ezetimibe 10 MG TAB PO SCH (19:41)
[2020-08-15] MEDS: Levothyroxine Sodium 100 MCG TAB PO SCH (05:03)
[2020-08-15] MEDS: Zinc Sulfate 220 MG CAP PO SCH (09:02)
[2020-08-15] MEDS: Enoxaparin Sodium 40 MG/0.4 ML SYRINGE SC SCH ×2 (09:02→20:07)
[2020-08-15] MEDS: Aspirin 81 mg Enteric Coated Tablet PO SCH ×2 (09:02→20:06)
[2020-08-15] MEDS: Famotidine 20 MG TAB PO SCH ×2 (09:02→20:07)
[2020-08-15] MEDS: Amlodipine 10 MG TAB PO SCH (09:02)
[2020-08-15] MEDS: guaiFENesin ER 600 MG TAB PO SCH ×2 (09:02→20:07)
[2020-08-15] MEDS: Potassium Chloride 10 MEQ TAB PO SCH ×2 (09:02→16:29)
[2020-08-15] MEDS: Dexamethasone 4 mg/ml Vial SLOW IVP SCH (09:03)
[2020-08-15] MEDS: levETIRAcetam 500 mg/5 ml Oral Solution PO SCH ×2 (09:05→20:08)
[2020-08-15] MEDS: cefTRIAXone\\ROCEPHIN 1 GM in Sodium Chloride 0.9% 100 ML IVPB SCH (20:06)
[2020-08-15] MEDS: Atorvastatin Calcium 20 MG TAB PO SCH (20:07)
[2020-08-15] MEDS: Ezetimibe 10 MG TAB PO SCH (20:07)
[2020-08-16 05:26] LABS: #Lymphocytes 0.8 thou/uL (1.20-3.40); #Monocytes 0.4 thou/uL (0.11-0.59); #Neutrophils 7.9 thou/uL (1.40-6.50); %Basophils 0.1 % (0.0-1.0); %Eosinophils 0.1 % (0.0-10.0); %Monocytes 4.8 % (0.0-10.0); %Neutrophils 86.1 % (42.0-75.0); Hemoglobin 12.3 g/dL (12.0-16.0); Mean Corpuscular HGB CONC 35.3 g/dL (32.0-36.0); Mean Corpuscular Volume 90.5 fL (78.0-98.0); Mean Platelet Volume 9.3 fL (7.4-10.4); Platelet Count 293 thou/uL (130-400); RBC Distribution Width 11.8 % (11.5-14.5); Red Blood Cell (RBC) Count 3.85 mill/uL (4.20-5.40); White Blood Cell (WBC) Count 9.1 thou/uL (4.8-10.8)
[2020-08-16 05:28] LABS: Anion Gap 12 mmol/L (10-20); BUN (Urea Nitrogen) 22 mg/dL (9.8-20.1); CRP (Inflammatory) 1.03 mg/dL (= or < 0.5); Calc. Creatinine Clearance 68 mL/min (70-130); Calcium 7.5 mg/dL (7.8-10.44); Carbon Dioxide 19 mmol/L (23-31); Chloride 110 mmol/L (98-107); Glucose 87 mg/dL (83-110); Potassium 3.8 mmol/L (3.5-5.1); Sodium 137 mmol/L (136-145)
[2020-08-16] MEDS: Levothyroxine Sodium 100 MCG TAB PO SCH (05:35)
[2020-08-16] MEDS: levETIRAcetam 500 mg/5 ml Oral Solution PO SCH ×2 (08:19→20:28)
[2020-08-16] MEDS: guaiFENesin ER 600 MG TAB PO SCH ×2 (08:20→20:28)
[2020-08-16] MEDS: Zinc Sulfate 220 MG CAP PO SCH (08:20)
[2020-08-16] MEDS: Potassium Chloride 10 MEQ TAB PO SCH ×2 (08:20→18:22)
[2020-08-16] MEDS: Famotidine 20 MG TAB PO SCH ×2 (08:20→20:28)
[2020-08-16] MEDS: Amlodipine 10 MG TAB PO SCH (08:20)
[2020-08-16] MEDS: Dexamethasone 4 mg/ml Vial SLOW IVP SCH (08:20)
[2020-08-16] MEDS: Aspirin 81 mg Enteric Coated Tablet PO SCH ×2 (08:20→20:28)
[2020-08-16] MEDS: Enoxaparin Sodium 40 MG/0.4 ML SYRINGE SC SCH ×2 (08:21→20:28)
[2020-08-16] MEDS: Ezetimibe 10 MG TAB PO SCH (20:28)
[2020-08-16] MEDS: Atorvastatin Calcium 20 MG TAB PO SCH (20:28)
[2020-08-16] MEDS: cefTRIAXone\\ROCEPHIN 1 GM in Sodium Chloride 0.9% 100 ML IVPB SCH (20:34)
[2020-08-17] MEDS: Levothyroxine Sodium 100 MCG TAB PO SCH (05:10)
[2020-08-17 05:32] LABS: #Lymphocytes 1.1 thou/uL (1.20-3.40); #Monocytes 0.6 thou/uL (0.11-0.59); #Neutrophils 7.4 thou/uL (1.40-6.50); %Basophils 0.1 % (0.0-1.0); %Eosinophils 0.1 % (0.0-10.0); %Lymphocytes 12.1 % (21.0-51.0); %Monocytes 6.4 % (0.0-10.0); %Neutrophils 81.3 % (42.0-75.0); Hemoglobin 12.1 g/dL (12.0-16.0); Mean Corpuscular Hemoglobin 30.6 pg (27.0-31.0); Mean Platelet Volume 9.3 fL (7.4-10.4); Platelet Count 322 thou/uL (130-400); RBC Distribution Width 12.1 % (11.5-14.5); Red Blood Cell (RBC) Count 3.94 mill/uL (4.20-5.40); White Blood Cell (WBC) Count 9.1 thou/uL (4.8-10.8)
[2020-08-17 05:52] LABS: Anion Gap 10 mmol/L (10-20); BUN (Urea Nitrogen) 20 mg/dL (9.8-20.1); Calc. Creatinine Clearance 66 mL/min (70-130); Calcium 7.6 mg/dL (7.8-10.44); Carbon Dioxide 20 mmol/L (23-31); Chloride 107 mmol/L (98-107); Glucose 81 mg/dL (83-110); Potassium 3.9 mmol/L (3.5-5.1); Sodium 133 mmol/L (136-145)
[2020-08-17] MEDS: levETIRAcetam 500 mg/5 ml Oral Solution PO SCH (09:21)
[2020-08-17] MEDS: Famotidine 20 MG TAB PO SCH (09:22)
[2020-08-17] MEDS: Aspirin 81 mg Enteric Coated Tablet PO SCH (09:22)
[2020-08-17] MEDS: Zinc Sulfate 220 MG CAP PO SCH (09:22)
[2020-08-17] MEDS: guaiFENesin ER 600 MG TAB PO SCH (09:22)
[2020-08-17] MEDS: Dexamethasone 4 mg/ml Vial SLOW IVP SCH (09:22)
[2020-08-17] MEDS: Amlodipine 10 MG TAB PO SCH (09:23)
[2020-08-17] MEDS: Potassium Chloride 10 MEQ TAB PO SCH (09:23)
[2020-08-17] MEDS: Enoxaparin Sodium 40 MG/0.4 ML SYRINGE SC SCH (09:23)
[2020-08-17 16:07] VITALS: BP 120/75; TEMP 97.5
== END 2020-08-17 15:22 | disposition home health service (06) | DRG 177 ==
LOC: ERS 18:44 → T4-B 20:34
PROVIDERS: ADMIT Internal Medicine; ATTEND Hospitalist
DX: U07.1 COVID-19 (principal); J12.82 Pneumonia due to coronavirus disease 2019; J96.01 Acute respiratory failure with hypoxia; E89.0 Postprocedural hypothyroidism; I10 Essential (primary) hypertension; G40.909 Epilepsy, unspecified, not intractable, without status epilepticus; M19.042 Primary osteoarthritis, left hand; M19.041 Primary osteoarthritis, right hand; Z96.642 Presence of left artificial hip joint; E78.00 Pure hypercholesterolemia, unspecified; Z90.710 Acquired absence of both cervix and uterus; Z79.890 Hormone replacement therapy; Z79.899 Other long term (current) drug therapy; Z79.82 Long term (current) use of aspirin
CPT/HCPCS: 36415; 51701; 71045; 80048; 80053; 81003; 82728; 83605; 83880; 84443; 84484; 85025; 85379; 86140; 87040; 87086; 87804; 93005; 96365; 96367; J0696; J1100; J1650; J3010; J3490; J8540; U0002

== ENCOUNTER 2020-12-11 12:47 | Outpatient (CLI) | payer MEDICARE | END 2020-12-11 12:48 | disposition home or self-care (01) | LOC: SCSMRI 12:47 | PROVIDERS: ATTEND Orthopaedic Surgery | DX: M47.26 Other spondylosis with radiculopathy, lumbar region (principal); S32.039A Unspecified fracture of third lumbar vertebra, initial encounter for closed fracture; S32.049A Unspecified fracture of fourth lumbar vertebra, initial encounter for closed fracture | CPT/HCPCS: 72148 ==